=== PATIENT | male | born 1965 | race Caucasian/White ===

== ENCOUNTER 2018-03-22 11:12 | Emergency (ER) | payer OTHER ==
[~2018-03-22 11:12] MED LIST: ISOVUE-370 76%-LOCM 1 ML ONE
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
[2018-03-22 12:47] LABS: Hemoglobin 10.8 g/dL (14.0-18.0); Mean Corpuscular HGB CONC 32.4 g/dL (32.0-36.0); Mean Corpuscular Hemoglobin 31.6 pg (27.0-31.0); Mean Corpuscular Volume 97.4 fL (78.0-98.0); Mean Platelet Volume 9.1 fL (7.4-10.4); Platelet Count 44 thou/uL (130-400); RBC Distribution Width 13.3 % (11.5-14.5); Red Blood Cell (RBC) Count 3.41 mill/uL (4.70-6.10); White Blood Cell (WBC) Count 1.4 thou/uL (4.8-10.8)
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
[2018-03-22 12:51] LABS: Clarity Turbid (Clear)
[2018-03-22 12:52] LABS: Glucose, Urine (Dipstick) Unable to Interpret mg/dL (Negative); Leukocyte Unable to Interpret (Negative); Nitrite Unable to Interpret (Negative); Protein, Urine (Dipstick) > or equal to 300 mg/dL (Neg-Trace); Specific Gravity, Urine 1.017 (1.002-1.036); pH, Urine 7.3 (5.0-9.0)
[2018-03-22 12:53] LABS: Bilirubin Unable to Interpret (Negative); Blood, Urine Unable to Interpret (Negative); Urobilinogen UNABLE TO INTERPRET mg/dL (0.2-1.0)
[2018-03-22 13:04] LABS: Band 17 % (5-11); Lymphocytes 11 % (21-51); MDiff Complete? YES; Manual Diff?? YES; Metamyelocyte 1 % (0-0); Monocytes 3 % (0-10); Neutrophil 68 % (42-75)
[2018-03-22 13:05] LABS: Anisocytosis SLIGHT = 6-15 cells (100X) (0-5/hpf); Hypochromia SLIGHT = 6-15 cells (100X) (0-5/hpf); PLT Morphology Comment Appears Decreased
[2018-03-22 13:06] LABS: Bacteria/HPF None Seen HPF (None Seen); Hyaline Casts/LPF NONE SEEN LPF (0-3 Hyaline); RBC/HPF GREATER THAN 50-TNTC HPF (0-3); Squamous Epithelial None Seen HPF (0-3); WBC/HPF None Seen HPF (0-3)
[2018-03-22 13:07] LABS: Amphetamine Not Detected (NotDetected); Barbiturates Screen Not Detected (NotDetected); Benzodiazepine Screen Not Detected (NotDetected); Cocaine Metabolite Screen Not Detected (NotDetected); Medtox Control Line Valid? VALID (VALID); Medtox Reader # READER 1; Methadone Not Detected (NotDetected); Methamphetamine Not Detected (NotDetected); Opiate Screen Not Detected (NotDetected); Oxycodone Screen Not Detected (NotDetected); Phencyclidine (PCP) Not Detected (NotDetected); THC/Cannabinoid Screen Not Detected (NotDetected); Tricyclic Screen Not Detected (NotDetected)
[2018-03-22 13:30] LABS: INR-International Normal Ratio 2.5
[2018-03-22 13:31] LABS: PTT 104.8 SEC (22.9-36.1)
[2018-03-22 13:48] LABS: ALT (SGPT) 35 U/L (8-55); AST (SGOT) 75 U/L (5-34); Albumin 2.1 g/dL (3.5-5.0); Alkaline Phosphatase 111 U/L (40-150); Anion Gap 12 mmol/L (10-20); BUN (Urea Nitrogen) 29 mg/dL (8.4-25.7); Bilirubin, Total 7.1 mg/dL (0.2-1.2); Calc. Creatinine Clearance 0 mL/min (70-130); Calcium 7.6 mg/dL (7.8-10.44); Carbon Dioxide 22 mmol/L (22-29); Chloride 110 mmol/L (98-107); Estimated GFR-MDRD 42; Globulin 2.8 g/dL (2.4-3.5); Potassium 3.7 mmol/L (3.5-5.1); Protein, Total 4.9 g/dL (6.0-8.3); Sodium 140 mmol/L (136-145)
[2018-03-22 13:51] LABS: Glucose 39 mg/dL (70-105)
[2018-03-22] MEDS ORDERED: Dextrose 50% Abboject 50 ML SYRINGE ONE (13:56)
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
[2018-03-22 17:42] LABS: Hemoglobin 9.7 g/dL (14.0-18.0); Mean Corpuscular HGB CONC 34.2 g/dL (32.0-36.0); Mean Corpuscular Hemoglobin 32.4 pg (27.0-31.0); Mean Corpuscular Volume 94.7 fL (78.0-98.0); Platelet Count 26 thou/uL (130-400); RBC Distribution Width 14.1 % (11.5-14.5); Red Blood Cell (RBC) Count 2.98 mill/uL (4.70-6.10); White Blood Cell (WBC) Count 5.1 thou/uL (4.8-10.8)
[2018-03-22 18:00] LABS: Anisocytosis SLIGHT = 6-15 cells (100X) (0-5/hpf); Band 35 % (5-11); MDiff Complete? YES; Metamyelocyte 4 % (0-0); Myelocyte 2 % (0-0); Neutrophil 59 % (42-75); PLT Morphology Comment Appears Decreased
[2018-03-22 18:08] LABS: Lactic Acid 7.4 mmol/L (0.5-2.2)
== END 2018-03-22 19:25 | disposition short-term general hospital (02) ==
LOC: ERS 11:12
DX: S00.531A Contusion of lip, initial encounter (principal); I95.9 Hypotension, unspecified; D68.9 Coagulation defect, unspecified; R74.0 Nonspecific elevation of levels of transaminase and lactic acid dehydrogenase [LDH]; K40.90 Unilateral inguinal hernia, without obstruction or gangrene, not specified as recurrent; N50.89 Other specified disorders of the male genital organs; D64.9 Anemia, unspecified; K74.60 Unspecified cirrhosis of liver; J45.909 Unspecified asthma, uncomplicated; F25.9 Schizoaffective disorder, unspecified; Y04.8XXA Assault by other bodily force, initial encounter
CPT/HCPCS: 36415; 36416; 36430; 70450; 70486; 71260; 72125; 74177; 80053; 80306; 81003; 81015; 82553; 83605; 84484; 85025; 85060; 85610; 85730; 86850; 86900; 86901; 96360; 96361; 96374; G0390; P9012; P9016; P9035; P9059